=== PATIENT | female | born 1975 | race Asian ===

== ENCOUNTER 2016-12-09 10:09 | Inpatient (IN) | payer SELFPAY ==
[~2016-12-09] VITALS: Ht 152.4 cm; Wt 63.5 kg
[2016-12-12] MEDS ORDERED: OXYTOCIN 20 UNITS/LR PREMIX 1,000 ML IV SCH ×2 (00:46→08:25)
[2016-12-12] MEDS ORDERED: PROMETHAZINE 25 MG/ML VIAL IVP PRN (00:50)
[2016-12-12] MEDS ORDERED: OXYTOCIN 10 UNITS/ML VIAL IM SCH (00:50)
[2016-12-12] MEDS ORDERED: MISOPROSTOL 25 MCG TAB VG PRN (00:50)
[2016-12-12] MEDS ORDERED: IBUPROFEN 800 MG TAB PO PRN ×2 (00:50→06:50)
[2016-12-12] MEDS ORDERED: NALBUPHINE 10 MG/ML AMP IVP PRN (00:50)
[2016-12-12] MEDS ORDERED: MISOPROSTOL 25 MCG TAB ONE (01:13)
[2016-12-12] MEDS: LACTATED RINGERS 1,000 ML IV SCH ×2 (01:17→07:23)
[2016-12-12 01:59] VITALS: BP 120/65
[2016-12-12] MEDS ORDERED: PRENATAL VITAMI1 T10 PO (02:11)
[2016-12-12] MEDS ORDERED: CITRIC ACID/SODIUM CITRATE 30 ML UDC PO SCH (06:40)
[2016-12-12] MEDS ORDERED: METHYLERGONOVINE 0.2 MG/ML AMP IM PRN (06:50)
[2016-12-12] MEDS ORDERED: TRIMETHOBENZAMIDE 200 MG/2 ML SYR IM PRN (06:50)
[2016-12-12] MEDS ORDERED: oxyCODONE/APAP 5/325 MG 1 TAB TAB PO PRN (06:50)
[2016-12-12] MEDS ORDERED: TEMAZEPAM 15 MG CAP PO PRN (06:50)
[2016-12-12] MEDS ORDERED: MEASLES, MUMPS, AND RUBELLA 1 VIAL SQVAC PRN (06:50)
[2016-12-12] MEDS ORDERED: ceFAZolin 1,000 MG VIAL ONE (06:57)
[2016-12-12] MEDS ORDERED: CITRIC ACID/SODIUM CITRATE 30 ML UDC ONE (06:57)
[2016-12-12] MEDS ORDERED: TRIAMCINOLONE 40 MG/ML 5ML VIAL ONE (07:42)
[2016-12-12] MEDS ORDERED: OXYTOCIN 10 UNITS/ML VIAL ONE ×2 (07:43→07:54)
[2016-12-12] MEDS ORDERED: MORPHINE PRES FREE 10 MG/10 ML AMP IV ONE ×2 (07:44→07:54)
[2016-12-12] MEDS ORDERED: BUPIVACAINE-MPF 0.75% 10 ML VIAL INJ ONE (07:54)
[2016-12-12] MEDS ORDERED: ONDANSETRON 4 MG/2 ML VIAL ONE (07:54)
[2016-12-12] MEDS ORDERED: KETOROLAC 30 MG/ML VIAL ONE (07:54)
[2016-12-12] MEDS ORDERED: diphenhydrAMINE 50 MG/ML VIAL IVP PRN (08:25)
[2016-12-12] MEDS ORDERED: NALOXONE 0.4 MG/ML VIAL IVP PRN ×2 (08:25)
[2016-12-12] MEDS ORDERED: KETOROLAC 30 MG/ML VIAL IVP PRN (08:25)
[2016-12-12] MEDS ORDERED: ONDANSETRON 4 MG/2 ML VIAL IVP PRN (08:25)
[2016-12-12] MEDS ORDERED: HYDROmorphone 1 MG/ML AMP IVP PRN (08:25)
[2016-12-12] MEDS ORDERED: OXYTOCIN 20 UNITS/LR PREMIX 1,000 ML IV ONE (09:36)
[2016-12-12] MEDS: OXYTOCIN 20 UNITS/LR PREMIX 1,000 ML IV SCH ×2 (13:08→21:24)
[2016-12-12] MEDS: SIMETHICONE 80 MG TAB.CHEW PO SCH (20:42)
[2016-12-12] MEDS: DOCUSATE SOD/SENNA 50/8.6 MG 1 TAB PO SCH (20:43)
[2016-12-13] MEDS: OXYTOCIN 20 UNITS/LR PREMIX 1,000 ML IV SCH (05:22)
[2016-12-13] MEDS: SIMETHICONE 80 MG TAB.CHEW PO SCH ×4 (08:54→21:25)
--- NOTE | 2016-12-13 09:12 | NUR ---
PATIENT HAS BEEN SCREENED AND CATEGORIZED LOW NUTRITION RISK. PATIENT WILL BE SEEN WITHIN 7 DAYS OF ADMISSION. 12/18/[address]
[2016-12-13] MEDS: HYDROcodone/APAP 5/325 MG 1 TAB TAB PO PRN (12:51)
[2016-12-13] MEDS: DOCUSATE SOD/SENNA 50/8.6 MG 1 TAB PO SCH (21:25)
[2016-12-14] MEDS: SIMETHICONE 80 MG TAB.CHEW PO SCH (09:25)
[2016-12-14] MEDS: HYDROcodone/APAP 5/325 MG 1 TAB TAB PO PRN (09:25)
[2016-12-14] MEDS ORDERED: SIMETHICONE 80 MG TAB.CHEW PO PRN (12:00)
== END 2016-12-14 13:45 | disposition home or self-care (01) | DRG 766 ==
LOC: MLD 12-12 00:15 → MFCC 12-12 09:45
PROVIDERS: ADMIT Obstetrics & Gynecology; ATTEND Obstetrics & Gynecology
PROC: 10D00Z1 Extraction of Products of Conception, Low, Open Approach (ICD-10-PCS; principal; 2016-12-12 07:30)
DX: O76 Abnormality in fetal heart rate and rhythm complicating labor and delivery (principal); O69.81X0 Labor and delivery complicated by cord around neck, without compression, not applicable or unspecified; Z37.0 Single live birth; Z3A.40 40 weeks gestation of pregnancy; O09.529 Supervision of elderly multigravida, unspecified trimester; Z83.3 Family history of diabetes mellitus; Z82.49 Family history of ischemic heart disease and other diseases of the circulatory system